=== PATIENT | female | born 1970 | race American Indian/Alaskan Native ===

== ENCOUNTER 2017-04-28 07:30 | Inpatient (IN) | payer OTHER ==
[~2017-04-28 07:30] MED LIST: APRESOLINE IV PRN; FLAGYL 500 MG/100 ML 500 MG/100 ML BAG IV NR; PEPCID IV NR; REGLAN IV PRN; TRANSDERM-SCOP TD NR; TRANSDERM-SCOP TD SCH; VERSED IV NR
[2017-04-28] MEDS ORDERED: NACL BACTERIOSTATIC INFILTRATI ONE (09:36)
[2017-04-28 09:44] LABS: Bilirubin,Urine NEG (Negative); Blood,Urine NEG (Negative); Ketones,Urine TR mg/dL (Negative); Leukocyte Esterase,Urine NEG (Negative); Mucus,Urine FEW /HPF; Nitrite,Urine NEG (Negative); Protein,Urine <15 mg/dL mg/dL (Negative); Urobilinogen,Urine < 2.0 mg/dL (<2.0)
--- NOTE | 2017-04-28 09:50 | Anesthesia Consultation ---
Anesthesia Consult and Med Hx Date of service: 04/28/17 - Airway Anesthetic Teeth Evaluation: Dentures (upper and lower. Gums on upper, very large!) ROM Head & Neck: Adequate Mental/Hyoid Distance: Adequate Mallampati Class: Class I Intubation Access Assessment: Probably Good - Pulmonary Exam CTA: Yes - Cardiac Exam Cardiac Exam: RRR - Pre-Operative Health Status ASA Pre-Surgery Classification: ASA3 Proposed Anesthetic Plan: General - Pulmonary Hx Sleep Apnea: Yes - Cardiovascular System Hx Hypertension: Yes - Central Nervous System Hx Psychiatric Problems: No - Hematic Hx Anemia: Yes Hx Sickle Cell Disease: Yes (Trait only) - Other Systems Hx Alcohol Use: Yes (occas) Hx Cancer: No Hx Obesity: Yes
--- NOTE | 2017-04-28 09:51 | Anesthesia Day of Surgery ---
Anesthesia Day of Surgery - Day of Surgery Patient Examined: Yes Patient H&P Reviewed: Yes Patient is NPO: Yes
[2017-04-28] MEDS: NACL 0.9% 1000 ML 1,000 ML IV SCH (10:11)
[2017-04-28] MEDS: LOVENOX SUB-Q SCH (10:15)
[2017-04-28] MEDS ORDERED: LEVAQUIN 500MG/100ML 500 MG/100 ML BAG IV NR (11:00)
[2017-04-28] MEDS ORDERED: FLAGYL 500 MG/100 ML 500 MG/100 ML BAG IV NR (11:00)
[2017-04-28] MEDS ORDERED: LOPRESSOR PO ONE (12:09)
[2017-04-28] MEDS ORDERED: DIPRIVAN 10 MG/ML IV ONE (13:15)
[2017-04-28] MEDS ORDERED: SUBLIMAZE ONE (13:16)
[2017-04-28] MEDS ORDERED: MARCAINE-EPI 0.5%-1:200,000 INFILTRATI ONE ×2 (13:35→14:32)
[2017-04-28] MEDS ORDERED: XYLOCAINE 1% 20 mL ONE (13:36)
[2017-04-28] MEDS ORDERED: DECADRON ONE (14:25)
[2017-04-28] MEDS ORDERED: ZEMURON IV ONE ×2 (14:28→15:16)
[2017-04-28] MEDS ORDERED: XYLOCAINE MPF 2% ONE (14:28)
[2017-04-28] MEDS ORDERED: NEOSTIGMINE ONE (14:29)
[2017-04-28] MEDS ORDERED: ROBINUL ONE (14:29)
[2017-04-28] MEDS ORDERED: XYLOCAINE 1% 20 mL INFILTRATI ONE (14:32)
[2017-04-28] MEDS ORDERED: TISSEEL VHSD FROZEN 4 ML SYR TP ONE (14:32)
[2017-04-28] MEDS ORDERED: NACL 0.9% IR ONE ×2 (14:32)
[2017-04-28] MEDS ORDERED: BREVIBLOC IV ONE (15:06)
[2017-04-28] MEDS ORDERED: DILAUDID ONE (15:08)
[2017-04-28] MEDS ORDERED: ZOFRAN ONE (15:09)
[2017-04-28] MEDS ORDERED: NACL 0.9% 1000 ML 1,000 ML ONE (16:26)
[2017-04-28] MEDS: DILAUDID IV PRN ×3 (17:07→20:50)
--- NOTE | 2017-04-28 17:46 | Post Anesthesia Evaluation ---
- Post Anesthesia Evaluation Patient Participated: Yes Airway Patent: Yes Stable Respiratory Function: Yes Nausea/Vomiting: No Temp > 96.8F: Yes Pain Manageable: Yes Adequeate Hydration: Yes Anesthesia Complications: No Block Receding Appropriately: Not Applicable Patient on Ventilator: No
[2017-04-28] MEDS: ZOFRAN IV PRN (20:35)
[2017-04-28] MEDS: LACTATED RINGERS 1,000 ML IV SCH (20:51)
[2017-04-29] MEDS: MYLICON PO PRN ×3 (00:21→21:47)
[2017-04-29] MEDS: DILAUDID IV PRN ×4 (00:22→21:48)
[2017-04-29] MEDS: ZOFRAN IV PRN (03:27)
[2017-04-29] MEDS ORDERED: ANCEF/STERILE WATER 2 GM/20 ML 2 GM/20 ML SYRINGE IV NR (08:00)
[2017-04-29] MEDS: LOVENOX SUB-Q SCH (10:34)
[2017-04-29] MEDS: MORPHINE IV PRN ×2 (10:54→17:23)
[2017-04-29] MEDS: LACTATED RINGERS 1,000 ML IV SCH (10:55)
[2017-04-29] MEDS ORDERED: PHENERGAN PR PRN (11:29)
--- NOTE | 2017-04-29 15:14 | Admit Criteria Form ---
Admission Criteria Documentation: AMBULATORY SURGERY EXCEPTION CRITERIA Ambulatory Surgery Exception Criteria ( Place 'X' for any and all applicable criteria): Surgery or procedure performed on ambulatory basis may require inpatient stay for[A] ANY ONE of the following(1)(2)(3)(4)(5)(6)(7)(8)(9): [X] I. A preoperative situation, condition, or finding that warrants inpatient stay as indicated by ANY ONE of the following: [] a) Inpatient care needed because of severity of a disease or condition rather than the surgery (eg, severe cardiac or respiratory disease, severe infection) (15) (16 ) (17) (18) [] b) Emergent procedure (eg, angioplasty for acute ischemia)(19) [] c) Complex surgical approach or situation as indicated by ANY ONE of the following(3): [] i) Open approach needed instead of usual endoscopic, transcatheter, or other less invasive procedure [] ii) Difficult approach because of previous operation [] iii) Airway monitoring required after open neck procedures(20)(21) [] iv) Large mass requiring unusually extensive dissection [] v) Additional complicating feature requiring inpatient care (eg, drain management)(22(23): [X] d) Major surgery in a pt with high anesthetic risk as indicated by ANY ONE of the following (2)(3)(5)(7)(8): [X] i) ASA risk class III or higher (severe systemic disease impairing function) [D] [] ii) Advanced age (eg, older than 85 years)(14)(24) [] iii) Symptomatic heart failure(25) [] iv) Symptomatic asthma or COPD(8)(21) [] v) Morbid obesity with hemodynamic or respiratory problems(20)( 21)(26)(27) [] vi) Obstructive sleep apnea(20)(21) [] vii) Former premature infants who are younger than 60 weeks [] viii) High risk for severe postoperative abnormalities (eg, severe postoperative hypocalcemia after parathyroidectomy for severe hyperparathyroidism)(27)( 28) [] ix) Unstable angina(25) [] e) Drug-related risk requiring inpatient stay as indicated by ANY ONE of the following(5)(10)(14)(32)(33) [] i) Procedure requires discontinuing drugs or other therapy (eg , antiarrhythmic medication, antiseizure medication), which necessitates inpatient observation or treatment.(18)(31) [] ii) Major surgery and high risk drug use as indicated by ANY ONE of the following: [] 1) Active abuse of cocaine or similar drug [] 2) Monoamine oxidase inhibitor use [] 3) Other drug identified as posing risk [] f) Inadequate outpatient care situation as indicated by ANY ONE of the following(5)(10)(14)(32)(33) [] i) Patient lives remote from medical facility and procedure has urgent complication potential, and temporary nearby residence cannot be arranged [] ii) Patient will have postprocedure incapacitation and inadequate assistance at home, or alternative level of care cannot be arranged. [] iii) Patient will have long general anesthesia or procedure side effect resolution time, and competent person to stay with patient on first postoperative night at home or alternative level of care cannot be arranged. []iv) Other inadequate outpatient situation that cannot be handled by other means [] II. A perioperative event, condition, or finding that warrants inpatient stay as indicated by ANY ONE of the following (1)(2)(3): [] a) Inadequate physiologic recovery: cardiovascular, respiratory, or hemodynamic status not normal or near preoperative baseline(18) [] b) Hemodynamic instability [] c) Patient not alert with near normal or baseline mental status [] d) Temperature not normal or as expected and not appropriate for outpatient treatment of condition [] e) Ambulatory or appropriate activity level status not yet achieved post procedure [E](34)(35)(36) [] f) Operative site not appropriate (eg, unexpected or excessive drainage or bleeding) [] g) Postoperative effects not resolved or adequately managed (eg, significant pain or vomiting not appropriate for outpatient or next level of care)(10)(12) [] h) Complicating features requiring inpatient care as indicated by ANY ONE of the following(37): [] i) Severe complications of procedure (eg, bowel injury, airway compromise, vascular injury,severe hemorrhage) [] ii) Extensive (eg, dissection far beyond usual scope of procedure ) or prolonged (eg, 120 minutes beyond usual) surgery needed requiring inpatient postoperative care [] iii) Conversion to an open or complex procedure that requires inpatient care (eg, open vs laparoscopic cholecystectomy, abdominal vs vaginal hysterectomy)(38) [] iv) Comorbid condition or test result identified during or post procedure that requires inpatient care (7) [] v) Malignant hyperthermia(30) [] vi) Other complicating feature requiring inpatient care(22)(23) Inpatient stay may be needed until ALL of the following are present (1)(2)(3)(4) (5)(6)(10)(14)(33)(40): []a) Physiologic recovery: cardiovascular, respiratory, and hemodynamic status normal or near preoperative baseline []b) Hemodynamic stability []c) Patient alert, with near normal or baseline mental status []d) Temperature appropriate: patient afebrile or temperature appropriate for outpt treatment of condition []e) Activity level appropriate: ambulatory or appropriate activity level post procedure []f) Operative site appropriate as indicated by ALL of the following: []i) Site dry or with expected drainage []ii) Any blood noted is as expected for procedure. []g) Postoperative effects resolved or managed as indicated by ALL of the following: []i) Pain management appropriate for outpatient (or next level of) care(10) []ii) Minimal nausea and vomiting: if present, successfully treated with oral medication(12) []iii) Headache, dizziness, or drowsiness (if present) are mild. []h) Voiding status acceptable as indicated by ANY ONE of the following: []i) Voiding spontaneously []ii) No voiding but instructions given for follow-up in 6 to 8 hours []iii) Urinary catheter in place, and instructions given for follow-up []i) Complicating features requiring inpatient care manageable at a lower level of care(37) []j) Comorbid conditions manageable at a lower level of care(37) The original [employer] content created by [employer] has been revised. The portions of the content which have been revised are identified through the use of italic text or in bold, and [facility] [employer] has neither reviewed nor approved the modified material. All other unmodified content is copyright [employer]. Please see references footnoted in the original [employer] edition 2016 Admission Criteria Met: Yes
[2017-04-29 15:25] LABS: Alanine Aminotransferase 54 units/L (7-56); Albumin 3.9 g/dL (3.9-5); Albumin/Globulin Ratio 1.2 %; Alkaline Phosphatase 43 units/L (35-129); Anion Gap 18 mmol/L; BUN/Creatinine Ratio 11.42; Blood Urea Nitrogen 8 mg/dL (7-17); Calcium 8.5 mg/dL (8.4-10.2); Carbon Dioxide 26 mmol/L (22-30); Chloride 96.8 mmol/L (98-107); Glucose 128 mg/dL (65-100); Potassium 4.3 mmol/L (3.6-5.0); Sodium 136 mmol/L (137-145); Total Protein 7.1 g/dL (6.3-8.2)
[2017-04-29 15:31] LABS: Basophils % (Auto) 0.1 % (0.0-1.8); Hematocrit 35.6 % (30.3-42.9); Hemoglobin 11.8 gm/dl (10.1-14.3); Mean Corpuscular HGB Conc 33 % (30-34); Mean Corpuscular Hemoglobin 29 pg (28-32); Mean Corpuscular Volume 88 fl (79-97); Platelet Count 259 K/mm3 (140-440); Red Blood Count 4.03 M/mm3 (3.65-5.03); Red Cell Distribution Width 12.7 % (13.2-15.2); White Blood Count 12.6 K/mm3 (4.5-11.0)
--- NOTE | 2017-04-29 16:27 | History and Physical Report ---
History of Present Illness Date of examination: 04/29/17 Date of admission: 04/28/17 08:52 Medications and Allergies Allergies Allergy/AdvReac Type Severity Reaction Status Date / Time Cephalosporins Allergy Anaphylaxis Verified 04/27/17 11:35 Penicillins Allergy Anaphylaxis Verified 04/27/17 11:35 Sulfa (Sulfonamide Allergy Anaphylaxis Verified 04/27/17 11:35 Antibiotics) Home Medications Medication Instructions Recorded Confirmed Last Taken Type Biotin 10,000 mcg PO DAILY 04/22/17 04/28/17 04/27/17 History Calcium Phosphate Trib/Vit D3 1 each PO DAILY 04/22/17 04/28/17 04/27/17 History [Calcium + Vitamin D3 Gummies] Cholecalciferol (Vitamin D3) 10,000 unit PO QWEEK 04/22/17 04/28/17 04/24/17 History [Vitamin D3 10,000 unit] Famotidine [Pepcid] 40 mg PO QHS 04/22/17 04/28/17 04/27/17 History Iron Ag/C/B12/Ca/Suc.acid/Stom 1 each PO DAILY 04/22/17 04/28/17 04/24/17 History [Multigen (Nf)] Metoprolol [Lopressor TAB] 50 mg PO BID 04/22/17 04/28/17 04/27/17 07:00 History Pnv #86/Iron Poly/FA/Dha/Epa 1 each PO DAILY 04/22/17 04/28/17 04/27/17 History [Nestabs Abc Combo Pk] Active Meds: Active Medications Enoxaparin Sodium (Lovenox) 40 mg SUB-Q QDAY JOSELUIS Last Admin: 04/29/17 10:34 Dose: 40 mg Hydralazine HCl (Apresoline) 10 mg IV Q6H PRN PRN Reason: SBP > 150 Hydromorphone HCl (Dilaudid) 0.5 mg IV Q3H PRN PRN Reason: Pain , Severe (7-10) Last Admin: 04/29/17 14:13 Dose: 0.5 mg Hydromorphone HCl (Dilaudid) 0.5 mg IV Q10MIN PRN PRN Reason: Pain , Severe (7-10) Stop: 04/29/17 17:18 Last Admin: 04/28/17 17:43 Dose: 0.5 mg Sodium Chloride (Nacl 0.9% 1000 Ml) 1,000 mls @ 75 mls/hr IV DIRECT JOSELUIS Last Admin: 04/28/17 10:11 Dose: 75 mls/hr Lactated Ringer's (Lactated Ringers) 1,000 mls @ 150 mls/hr IV DIRECT JOSELUIS Last Admin: 04/29/17 10:55 Dose: 150 mls/hr Metoclopramide HCl (Reglan) 10 mg IV Q6H PRN PRN Reason: Nausea And Vomiting Last Admin: 04/28/17 22:33 Dose: 10 mg Morphine Sulfate (Morphine) 2 mg IV Q4H PRN PRN Reason: Pain, Moderate (4-6) Last Admin: 04/29/17 10:54 Dose: 2 mg Ondansetron HCl (Zofran) 4 mg IV Q8H PRN PRN Reason: Nausea And Vomiting Last Admin: 04/29/17 03:27 Dose: 4 mg Promethazine HCl (Phenergan) 25 mg HI Q6H PRN PRN Reason: Nausea And Vomiting Last Admin: 04/29/17 12:09 Dose: 25 mg Scopolamine (Transderm-Scop) 1 each TD Q3D JOSELUIS Last Admin: 04/28/17 21:20 Dose: Not Given Simethicone (Mylicon) 80 mg PO Q6H PRN PRN Reason: Gas pain Last Admin: 04/29/17 10:34 Dose: 80 mg Exam Vital Signs Temp Pulse Resp BP Pulse Ox 98.6 F 69 20 132/82 98 04/28/17 09:20 04/28/17 09:20 04/28/17 09:20 04/28/17 09:20 04/28/17 09:20 Results - Labs 04/29/17 14:46 04/29/17 14:37 Abnormal lab results 04/29/17 04/29/17 Range/Units 14:37 14:46 WBC 12.6 H (4.5-11.0) K/mm3 RDW 12.7 L (13.2-15.2) % Lymph % (Auto) 9.0 L (13.4-35.0) % [place] % (Auto) 8.6 H (0.0-7.3) % Lymph # 1.1 L (1.2-5.4) K/mm3 [place] # 1.1 H (0.0-0.8) K/mm3 Seg Neutrophils % 82.3 H (40.0-70.0) % Seg Neutrophils # 10.4 H (1.8-7.7) K/mm3 Sodium 136 L (137-145) mmol/L Chloride 96.8 L (98-107) mmol/L Glucose 128 H (65-100) mg/dL AST 44 H (5-40) units/L Diabetes panel 04/29/17 Range/Units 14:37 Sodium 136 L (137-145) mmol/L Potassium 4.3 (3.6-5.0) mmol/L Chloride 96.8 L (98-107) mmol/L Carbon Dioxide 26 (22-30) mmol/L BUN 8 (7-17) mg/dL Creatinine 0.7 (0.7-1.2) mg/dL Glucose 128 H (65-100) mg/dL Calcium 8.5 (8.4-10.2) mg/dL AST 44 H (5-40) units/L ALT 54 (7-56) units/L Alkaline Phosphatase 43 (35-129) units/L Total Protein 7.1 (6.3-8.2) g/dL Albumin 3.9 (3.9-5) g/dL Calcium panel 04/29/17 Range/Units 14:37 Calcium 8.5 (8.4-10.2) mg/dL Albumin 3.9 (3.9-5) g/dL Pituitary panel 04/29/17 Range/Units 14:37 Sodium 136 L (137-145) mmol/L Potassium 4.3 (3.6-5.0) mmol/L Chloride 96.8 L (98-107) mmol/L Carbon Dioxide 26 (22-30) mmol/L BUN 8 (7-17) mg/dL Creatinine 0.7 (0.7-1.2) mg/dL Glucose 128 H (65-100) mg/dL Calcium 8.5 (8.4-10.2) mg/dL Adrenal panel 04/29/17 Range/Units 14:37 Sodium 136 L (137-145) mmol/L Potassium 4.3 (3.6-5.0) mmol/L Chloride 96.8 L (98-107) mmol/L Carbon Dioxide 26 (22-30) mmol/L BUN 8 (7-17) mg/dL Creatinine 0.7 (0.7-1.2) mg/dL Glucose 128 H (65-100) mg/dL Calcium 8.5 (8.4-10.2) mg/dL Total Bilirubin 0.90 (0.1-1.2) mg/dL AST 44 H (5-40) units/L ALT 54 (7-56) units/L Alkaline Phosphatase 43 (35-129) units/L Total Protein 7.1 (6.3-8.2) g/dL Albumin 3.9 (3.9-5) g/dL
[2017-04-29] MEDS: NACL 0.9% 1000 ML 1,000 ML IV SCH (17:29)
[2017-04-29] MEDS: REGLAN IV SCH ×2 (18:40→23:44)
[2017-04-29] MEDS: PHENERGAN PR SCH ×2 (18:40→23:44)
[2017-04-30] MEDS: DILAUDID IV PRN ×3 (03:33→14:06)
[2017-04-30] MEDS: PHENERGAN PR SCH ×4 (03:34→17:52)
[2017-04-30] MEDS: REGLAN IV SCH ×4 (03:35→14:07)
[2017-04-30] MEDS: NACL 0.9% 1000 ML 1,000 ML IV SCH (06:17)
[2017-04-30] MEDS: MYLICON PO PRN (06:19)
[2017-04-30 09:05] LABS: Basophils % (Auto) 0.5 % (0.0-1.8); Eosinophils % (Auto) 0.5 % (0.0-4.3); Hematocrit 35.4 % (30.3-42.9); Hemoglobin 11.7 gm/dl (10.1-14.3); Mean Corpuscular HGB Conc 33 % (30-34); Mean Corpuscular Hemoglobin 29 pg (28-32); Mean Corpuscular Volume 89 fl (79-97); Platelet Count 245 K/mm3 (140-440); Red Blood Count 3.99 M/mm3 (3.65-5.03); Red Cell Distribution Width 12.5 % (13.2-15.2)
[2017-04-30] MEDS: LOVENOX SUB-Q SCH (09:23)
[2017-04-30 09:28] LABS: Alanine Aminotransferase 44 units/L (7-56); Albumin 3.5 g/dL (3.9-5); Albumin/Globulin Ratio 1.1 %; Alkaline Phosphatase 40 units/L (35-129); Anion Gap 16 mmol/L; Blood Urea Nitrogen 7 mg/dL (7-17); Calcium 8.4 mg/dL (8.4-10.2); Carbon Dioxide 28 mmol/L (22-30); Chloride 99.3 mmol/L (98-107); Glucose 106 mg/dL (65-100); Potassium 4.2 mmol/L (3.6-5.0); Sodium 139 mmol/L (137-145); Total Protein 6.7 g/dL (6.3-8.2)
--- NOTE | 2017-04-30 12:07 | Progress Note ---
Assessment and Plan Patient to continue IV Reglan, Rectal phenergan and Pain medication. Patient instructed to continue to try clear liquid. Will monitor patient for improvement in her ability to tolerate liquid diet. Subjective Date of service: 04/29/17 Patient Reports: Positive: nausea, vomiting, afebrile Objective Vital Signs - 12hr 04/30/17 04/30/17 07:18 08:00 Temperature 98.5 F 98.2 F Pulse Rate 84 79 Respiratory 18 18 Rate Blood Pressure 142/97 191/96 O2 Sat by Pulse 100 96 Oximetry - General physical appearance well developed, well nourished, moderate distress - Respiratory normal expansion, normal respiratory effort - Abdomen soft, bowel sounds normal, surgical scars - Neurologic normal coordination - Psychiatric oriented to time, oriented to person, oriented to place, speech is normal - Labs 04/30/17 08:55 04/30/17 08:55 Diabetes panel 04/29/17 04/30/17 Range/Units 14:37 08:55 Sodium 136 L 139 (137-145) mmol/L Potassium 4.3 4.2 (3.6-5.0) mmol/L Chloride 96.8 L 99.3 (98-107) mmol/L Carbon Dioxide 26 28 (22-30) mmol/L BUN 8 7 (7-17) mg/dL Creatinine 0.7 0.7 (0.7-1.2) mg/dL Glucose 128 H 106 H (65-100) mg/dL Calcium 8.5 8.4 (8.4-10.2) mg/dL AST 44 H 32 (5-40) units/L ALT 54 44 (7-56) units/L Alkaline Phosphatase 43 40 (35-129) units/L Total Protein 7.1 6.7 (6.3-8.2) g/dL Albumin 3.9 3.5 L (3.9-5) g/dL Calcium panel 04/29/17 04/30/17 Range/Units 14:37 08:55 Calcium 8.5 8.4 (8.4-10.2) mg/dL Albumin 3.9 3.5 L (3.9-5) g/dL Pituitary panel 04/29/17 04/30/17 Range/Units 14:37 08:55 Sodium 136 L 139 (137-145) mmol/L Potassium 4.3 4.2 (3.6-5.0) mmol/L Chloride 96.8 L 99.3 (98-107) mmol/L Carbon Dioxide 26 28 (22-30) mmol/L BUN 8 7 (7-17) mg/dL Creatinine 0.7 0.7 (0.7-1.2) mg/dL Glucose 128 H 106 H (65-100) mg/dL Calcium 8.5 8.4 (8.4-10.2) mg/dL Adrenal panel 04/29/17 04/30/17 Range/Units 14:37 08:55 Sodium 136 L 139 (137-145) mmol/L Potassium 4.3 4.2 (3.6-5.0) mmol/L Chloride 96.8 L 99.3 (98-107) mmol/L Carbon Dioxide 26 28 (22-30) mmol/L BUN 8 7 (7-17) mg/dL Creatinine 0.7 0.7 (0.7-1.2) mg/dL Glucose 128 H 106 H (65-100) mg/dL Calcium 8.5 8.4 (8.4-10.2) mg/dL Total Bilirubin 0.90 0.90 (0.1-1.2) mg/dL AST 44 H 32 (5-40) units/L ALT 54 44 (7-56) units/L Alkaline Phosphatase 43 40 (35-129) units/L Total Protein 7.1 6.7 (6.3-8.2) g/dL Albumin 3.9 3.5 L (3.9-5) g/dL
--- NOTE | 2017-04-30 14:42 | Discharge Summary ---
Providers - Providers Date of Admission: 04/28/17 08:52 Date of discharge: 04/30/17 Attending physician: ROSA SOLIZ Primary care physician: OSCAR POND MD Hospitalization Condition: Good Hospital course: 47 y.o. female admitted for lap gastrojejunum revision and biliopancreatic limb lengthening on 04/28. On POD 1 pt could not tolerate fluids and had severe epigastric pain. The addition of relgan and promethazine helped her symptoms. On POD 2 she was able to tolerate liquids without vomiting or severe nausea. Her pain was controlled prior to discharge. She has been ambulating and using her incentive spirometer. She is unable to follow up for a wound check in our office since she lives 4 hrs away. She will follow up with her primary care doctor which has already been arranged. Disposition: - TO HOME OR SELFCARE - Discharge Diagnoses (1) Morbid obesity Status: Acute Core Measure Documentation - Palliative Care Palliative Care/ Comfort Measures: Not Applicable - Core Measures Any of the following diagnoses?: none Exam - Physical Exam Narrative exam: VSS cardio RRR Lungs CTA Abd: soft, tender at incision sites, Dressings cdi. no rebound no guarding ext: no c/c/e - Constitutional Vitals: Temp Pulse Resp BP Pulse Ox 98.2 F 79 18 191/96 96 04/30/17 08:00 04/30/17 08:00 04/30/17 08:00 04/30/17 08:00 04/30/17 13:34 Plan Activity: other (no lifting >15lb for 6 weeks) Diet: other (sugar free clears ) Wound: other (remove dressing tomorrow. may shower. no soaking in the tub. ) Additional Instructions: Follow up with Primary care doctor Thursday for a wound check . Follow up with Dr Soliz in 2-3 weeks. Pt has an appointment. Follow up with: PRIMARY MD DEJAH [Primary Care Provider] - 7 Days
--- NOTE | 2017-04-30 14:50 | Progress Note ---
Assessment and Plan - Patient Problems (1) Morbid obesity Current Visit: Yes Status: Acute Plan to address problem: S/p lap gastro-J revision and biliopancreatic limb lengthening POD 2 Pt feels much better compared to yesterday. She is able to tolerate fluids. She denies any epigastric pain and her incisional pain is well controlled. She feels well enough to be discharged today. She will follow up with her primary care doctor as well as in our office for bariatric surgery follow up. She understands she needs to drink at least 64 oz of fluid a day and follow the post bariatric guidelines provided at the office. Subjective Patient Reports: Positive: feels better Narrative: Pt is able to tolerate fluids without severe nausea. She denies recent vomiting. Pt stayed overnight due to previous nausea and epigastric pain. She no longer has epigastric pain. She has been ambulating and using her incentive spirometer Objective Vital Signs - 12hr 04/30/17 04/30/17 04/30/17 07:18 08:00 13:34 Temperature 98.5 F 98.2 F Pulse Rate 84 79 Respiratory 18 18 Rate Blood Pressure 142/97 191/96 O2 Sat by Pulse 100 96 96 Oximetry - General physical appearance Narrative Exam: Cardio: RRR Lungs : CTA BL Abd: soft, obese, dressings cdi. incisional tenderness. ext: no C/c/e - Labs 04/30/17 08:55 04/30/17 08:55 Diabetes panel 04/29/17 04/30/17 Range/Units 14:37 08:55 Sodium 136 L 139 (137-145) mmol/L Potassium 4.3 4.2 (3.6-5.0) mmol/L Chloride 96.8 L 99.3 (98-107) mmol/L Carbon Dioxide 26 28 (22-30) mmol/L BUN 8 7 (7-17) mg/dL Creatinine 0.7 0.7 (0.7-1.2) mg/dL Glucose 128 H 106 H (65-100) mg/dL Calcium 8.5 8.4 (8.4-10.2) mg/dL AST 44 H 32 (5-40) units/L ALT 54 44 (7-56) units/L Alkaline Phosphatase 43 40 (35-129) units/L Total Protein 7.1 6.7 (6.3-8.2) g/dL Albumin 3.9 3.5 L (3.9-5) g/dL Calcium panel 04/29/17 04/30/17 Range/Units 14:37 08:55 Calcium 8.5 8.4 (8.4-10.2) mg/dL Albumin 3.9 3.5 L (3.9-5) g/dL Pituitary panel 04/29/17 04/30/17 Range/Units 14:37 08:55 Sodium 136 L 139 (137-145) mmol/L Potassium 4.3 4.2 (3.6-5.0) mmol/L Chloride 96.8 L 99.3 (98-107) mmol/L Carbon Dioxide 26 28 (22-30) mmol/L BUN 8 7 (7-17) mg/dL Creatinine 0.7 0.7 (0.7-1.2) mg/dL Glucose 128 H 106 H (65-100) mg/dL Calcium 8.5 8.4 (8.4-10.2) mg/dL Adrenal panel 04/29/17 04/30/17 Range/Units 14:37 08:55 Sodium 136 L 139 (137-145) mmol/L Potassium 4.3 4.2 (3.6-5.0) mmol/L Chloride 96.8 L 99.3 (98-107) mmol/L Carbon Dioxide 26 28 (22-30) mmol/L BUN 8 7 (7-17) mg/dL Creatinine 0.7 0.7 (0.7-1.2) mg/dL Glucose 128 H 106 H (65-100) mg/dL Calcium 8.5 8.4 (8.4-10.2) mg/dL Total Bilirubin 0.90 0.90 (0.1-1.2) mg/dL AST 44 H 32 (5-40) units/L ALT 54 44 (7-56) units/L Alkaline Phosphatase 43 40 (35-129) units/L Total Protein 7.1 6.7 (6.3-8.2) g/dL Albumin 3.9 3.5 L (3.9-5) g/dL
[2017-04-30 17:26] VITALS: BP 125/81
== END 2017-04-30 16:30 | disposition home or self-care (01) | DRG 327 ==
LOC: 3A 08:52 → 2B-SURG 17:39
PROVIDERS: ADMIT Specialist; ATTEND Specialist
PROC: 0D164ZB Bypass Stomach to Ileum, Percutaneous Endoscopic Approach (ICD-10-PCS; principal; 2017-04-28)
PROC: 0BQS4ZZ (ICD-10-PCS; 2017-04-28)
PROC: 0BQR4ZZ (ICD-10-PCS; 2017-04-28)
DX: K91.89 Other postprocedural complications and disorders of digestive system (principal); Z68.42 Body mass index [BMI] 45.0-49.9, adult; E66.01 Morbid (severe) obesity due to excess calories; F32.9 Major depressive disorder, single episode, unspecified; G47.30 Sleep apnea, unspecified; I10 Essential (primary) hypertension; K21.9 Gastro-esophageal reflux disease without esophagitis; M15.4 Erosive (osteo)arthritis; K44.9 Diaphragmatic hernia without obstruction or gangrene; N92.0 Excessive and frequent menstruation with regular cycle; R10.13 Epigastric pain; Y92.89 Other specified places as the place of occurrence of the external cause; Z88.1 Allergy status to other antibiotic agents; Z88.0 Allergy status to penicillin; Z88.2 Allergy status to sulfonamides
CPT/HCPCS: 36415; 80053; 81001; 81025; 85025; 94760; A4217; C9250; J1100; J1170; J1650; J1956; J2250; J2270; J2405; J2704; J2710; J2765; J3010; J7030; J7120